=== PATIENT | male | born 1975 | race Caucasian/White ===

== ENCOUNTER 2025-02-21 15:07 | Outpatient (CLI) | payer BC, SELFPAY ==
--- NOTE | 2025-02-21 15:30 | MR_ITS ---
[address] [address] Phone:?[phone] Fax:?[phone] Referring Physician Information: Jorge Alberto Lindsey M.D. [id number] [facility] [address] Phone:?[phone] Fax:?[phone] Patient:Pedro Strange D.O.B:?1975 Sex:?Male Phone:?[phone] [facility] MRN:?[id number] Exam Date:?02/21/2025 EXAM: MRI EXAMINATION OF THE RIGHT KNEE CLINICAL INFORMATION: Right knee pain. No specific injury. No history of surgery to this area. Evaluate meniscal tear. TECHNICAL INFORMATION: Coronal PD and STIR. Axial PD and T2 fat saturation. Sagittal PD and PD fat saturation images acquired. No prior studies for comparison. INTERPRETATION: Bones: No appreciable subchondral edema signal or cystic change. No occult fracture, osseous contusion or stress reaction. No evidence for AVN. No other abnormal bone marrow edema pattern is identified. Ligaments and tendons: The medial collateral ligament is intact, without acute sprain or tear. The iliotibial band, fibular collateral ligament, biceps femoris tendon and popliteus tendon all are intact. Series 8 images 25 through 27 demonstrate 2.2 cm slender ovoid ganglion cyst alongside the anterior aspect of the popliteus muscle belly, alongside the posterior aspect of the proximal metaphyseal tibia. The anterior cruciate ligament is intact without acute sprain or tear. The posterior cruciate ligament is intact. Extensor Mechanism: The patellar and quadriceps tendons are intact. The medial and lateral retinacula are intact. Knee Joint: Small knee joint effusion. No discrete popliteal cyst. There is no discrete loose body seen within the joint. Medial Compartment: There is abnormal horizontal signal within the body extending into the posterior horn of the medial meniscus. Signal appears to extend as poorly defined undersurface tear involving the junction of mid and peripheral one third portion just into the posterior horn of the meniscus. There is no evidence for a flap fragment. There is a slender ovoid 1.3 cm soft tissue ganglion cyst superficial to the distal PCL, appearing unlikely to arise as a posterior horn parameniscal cyst. There is no focal chondral defect. No other significant changes of chondromalacia. Lateral Compartment: There is no evidence for discrete lateral meniscal tear. No displaced flap fragment or parameniscal cyst. There is no focal chondral defect. No other significant changes of chondromalacia. Patellofemoral articulation: There is no focal chondral defect. No other significant chondromalacia. CONCLUSION: 1. Horizontal signal within the body and just into the posterior horn medial meniscus. Signal appears to extend as poorly defined undersurface tear involving the junction of mid and peripheral one third portion just into the posterior horn. 2. There is a slender ovoid 1.3 cm soft tissue ganglion cyst superficial to the distal PCL. This appears unlikely to arise at the posterior horn medial parameniscal cyst. 3. No lateral meniscal tear. The cruciate ligaments are intact. 4. The articular cartilage is preserved. 5. There is a slender ovoid 2.2 cm ganglion cyst deep to the popliteus muscle belly alongside the posterior aspect of the proximal metaphyseal tibia. KES Electronically signed on 02/22/2025 8:05:00 AM by Gabriel Greenberg M.D.
== END 2025-02-21 15:08 | disposition home or self-care (01) ==
LOC: MRI 15:08
PROVIDERS: Visit Provider Orthopaedic Surgery
DX: M25.561 Pain in right knee (principal); S83.241A Other tear of medial meniscus, current injury, right knee, initial encounter; M67.461 Ganglion, right knee
CPT/HCPCS: 73721

== ENCOUNTER 2025-02-27 06:19 | Outpatient (CLI) | payer BC, SELFPAY ==
[2025-02-27 07:04] VITALS: BP 122/80; PULSE 66; RESP 16; O2SAT 98
--- NOTE | 2025-02-27 07:25 | PM.ORPRC ---
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 COMPLICATIONS: None. SPECIMENS: None. DRAINS: None. PREOPERATIVE ANTIBIOTICS: None INDICATIONS: The patient is a 49-year-old with a history of right hip pain secondary to the above diagnoses. Despite appropriate non operative management, they continue to have symptoms. Operative intervention was recommended. The risks, benefits and expected outcomes were discussed in detail. These included but were not limited to: Infection, bleeding, injury to blood vessel or nerve, venous thromboembolism. All questions were answered to their satisfaction. PROCEDURE: The patient was placed in the lateral decubitus position. The right hip was imaged in the long and short axes with the ultrasound transducer. Normal acoustic landmarks were identified. We then sterilely prepped and draped the skin, and used a sterile probe cover with sterile gel. Local anesthesia was established with 10 mL of a solution containing 2 % lidocaine without epinephrine, 0.5% Marcaine without epinephrine and sodium bicarbonate. An 11 blade was used to incise the skin. The Tenex TX 2 micro tip was used to treat the abductor tendon for a total of 3 minutes and 42 seconds. The incision was Steri-Stripped closed. A dry dressing was applied. Sponge and needle counts were correct x2. The patient tolerated the procedure well. There were no apparent complications. They were discharged to home in satisfactory condition. PLAN: The patient may weightbear as tolerates. Ice, Tylenol and ibuprofen can be used for discomfort. They may ramp up activity as the hip will allow. They will follow up in the office in 6 weeks to assess their progress.
[2025-02-27 07:27] VITALS: BP 126/87; PULSE 67; RESP 16; O2SAT 97
== END 2025-02-27 07:32 | disposition home or self-care (01) ==
LOC: US 06:20
PROVIDERS: Visit Provider Orthopaedic Surgery
DX: M70.61 Trochanteric bursitis, right hip (principal)
CPT/HCPCS: 27006; 76942; J0665